=== PATIENT | female | born 1980 ===

== ENCOUNTER 2019-05-19 00:45 | Inpatient (IN) ==
[2019-05-19] MEDS ORDERED: SODIUM CHLORIDE 0.9% 1,000 ML IV SCH (03:30)
[2019-05-19 06:31] LABS: Basophils % 0.2 % (0.0-0.8); Eosinophils # 0.2 10*3/uL (0.0-0.87); Eosinophils % 2.2 % (0.00-10.9); Hematocrit 35.6 VOL% (35.7-47.0); Hemoglobin 11.9 GM/DL (12.0-16.0); Immature Granulocytes % 0.2 %; Immature Granulocytes Absolute 0.02 #; Lymphocytes # 1.8 10*3/uL (1.4-4.0); Lymphocytes % 21.4 % (21.3-54.2); Mean Corpuscular HGB Conc 33.4 GM/DL (32-36); Mean Corpuscular Volume 92.5 FL (87-102); Mean Platelet Volume 10.1 FL (9.6-12.0); Monocytes % 7.4 % (1.7-12.7); Neutrophils % 68.6 % (38.7-73.9); Platelet Count 215 T/CUMM (130-400); Red Blood Count 3.85 MC/CUMM (3.8-5.5); Red Cell Distribution Width 12.8 % (9.3-17.3); White Blood Count 8.2 T/CUMM (4-12)
[2019-05-19 06:51] LABS: Osmolality,Calculated 282.1 MOS/KG (273-304); Total Protein 5.9 G/DL (6.4-8.3)
[2019-05-19] MEDS: ENOXAPARIN 40 MG/0.4 ML SYRINGE SUBCUT SCH (09:21)
[2019-05-19] MEDS: DEXT 5% NACL 0.9% KCL 20 MEQ 20 MEQ/1,000 ML BAG IV SCH (09:21)
[2019-05-19] MEDS: PIPERACILLIN/TAZOBACTAM 3,375 MG in SODIUM CHLORIDE 0.9% 100 ML IV SCH ×2 (09:21→16:22)
[2019-05-20] MEDS: PIPERACILLIN/TAZOBACTAM 3,375 MG in SODIUM CHLORIDE 0.9% 100 ML IV SCH ×3 (00:02→18:19)
[2019-05-20] MEDS ORDERED: ACETAMINOPHEN 325 MG TABLET PO PRN (03:16)
[2019-05-20 04:32] LABS: Basophils % 0.4 % (0.0-0.8); Eosinophils # 0.2 10*3/uL (0.0-0.87); Hematocrit 34.4 VOL% (35.7-47.0); Hemoglobin 11.5 GM/DL (12.0-16.0); Immature Granulocytes % 0.3 %; Immature Granulocytes Absolute 0.02 #; Lymphocytes # 2.9 10*3/uL (1.4-4.0); Lymphocytes % 39.1 % (21.3-54.2); Mean Corpuscular HGB Conc 33.4 GM/DL (32-36); Mean Corpuscular Volume 92.5 FL (87-102); Mean Platelet Volume 10.7 FL (9.6-12.0); Monocytes % 5.7 % (1.7-12.7); Neutrophils % 51.5 % (38.7-73.9); Platelet Count 228 T/CUMM (130-400); Red Blood Count 3.72 MC/CUMM (3.8-5.5); Red Cell Distribution Width 12.8 % (9.3-17.3); White Blood Count 7.4 T/CUMM (4-12)
[2019-05-20 04:52] LABS: Albumin 2.9 G/DL (3.4-5.0); Bilirubin,Total 0.8 MG/DL (0.2-1.0); Calcium 8.2 MG/DL (8.5-10.1); Osmolality,Calculated 280.1 MOS/KG (273-304); Total Protein 5.7 G/DL (6.4-8.3)
[2019-05-20] MEDS: DEXT 5% NACL 0.9% KCL 20 MEQ 20 MEQ/1,000 ML BAG IV SCH ×3 (05:35→15:07)
[2019-05-20] MEDS ORDERED: INDOCYANINE GREEN 25 MG VIAL IV ONE (06:37)
[2019-05-20] MEDS ORDERED: cefOXitin 2,000 MG in SYRINGE 1 EACH IV ONE (06:37)
[2019-05-20] MEDS ORDERED: TISSUE ADHESIVE 1 EACH APPLICATOR TOP ONE (07:48)
[2019-05-20] MEDS ORDERED: BUPIVACAINE MPF 0.25% 30 ML VIAL ONE (07:49)
[2019-05-20] MEDS ORDERED: LIDOCAINE 1%/EPI INJ 20 ML VIAL ONE (07:49)
[2019-05-20] MEDS ORDERED: GLYCOPYRROLATE 0.4 MG/2 ML VIAL ONE (09:41)
[2019-05-20] MEDS ORDERED: SEVOFLURANE 1 UNIT/15 MINUTE INH ONE (09:41)
[2019-05-20] MEDS ORDERED: PROPOFOL 200 MG/20 ML VIAL IV ONE (09:41)
[2019-05-20] MEDS ORDERED: fentaNYL 100 MCG/2 ML VIAL ONE (09:41)
[2019-05-20] MEDS ORDERED: MIDAZOLAM 2 MG/2 ML VIAL ONE (09:41)
[2019-05-20] MEDS ORDERED: LIDOCAINE 2% 5 ML VIAL ONE (09:41)
[2019-05-20] MEDS ORDERED: ONDANSETRON 4 MG/2 ML VIAL ONE (09:41)
[2019-05-20] MEDS ORDERED: PHENYLEPHRINE 1 MG/10 ML SYRINGE IV ONE (09:42)
[2019-05-20] MEDS ORDERED: NEOSTIGMINE 10 MG/10 ML VIAL ONE (09:42)
[2019-05-20] MEDS ORDERED: ROCURONIUM 100 MG/10 ML VIAL IV ONE (09:42)
[2019-05-20] MEDS ORDERED: ONDANSETRON 4 MG/2 ML VIAL IV PRN (09:50)
[2019-05-20] MEDS ORDERED: HYDROmorphone 2 MG/1 ML VIAL IV PRN (09:50)
[2019-05-20] MEDS: ENOXAPARIN 40 MG/0.4 ML SYRINGE SUBCUT SCH (09:52)
[2019-05-20] MEDS ORDERED: HYDROmorphone 2 MG/1 ML VIAL ONE (09:52)
[2019-05-20] MEDS: MORPHINE 4 MG/1 ML VIAL IV PRN ×2 (15:30→21:36)
[2019-05-21] MEDS: MORPHINE 4 MG/1 ML VIAL IV PRN ×4 (03:08→16:56)
[2019-05-21] MEDS: PIPERACILLIN/TAZOBACTAM 3,375 MG in SODIUM CHLORIDE 0.9% 100 ML IV SCH ×3 (03:09→19:35)
[2019-05-21 04:34] LABS: Basophils % 0.4 % (0.0-0.8); Eosinophils # 0.2 10*3/uL (0.0-0.87); Eosinophils % 1.4 % (0.00-10.9); Hematocrit 34.6 VOL% (35.7-47.0); Hemoglobin 11.3 GM/DL (12.0-16.0); Immature Granulocytes % 0.4 %; Immature Granulocytes Absolute 0.04 #; Lymphocytes # 2.6 10*3/uL (1.4-4.0); Lymphocytes % 23.9 % (21.3-54.2); Mean Corpuscular HGB Conc 32.7 GM/DL (32-36); Mean Platelet Volume 10.3 FL (9.6-12.0); Monocytes % 5.7 % (1.7-12.7); Neutrophils % 68.2 % (38.7-73.9); Platelet Count 227 T/CUMM (130-400); Red Blood Count 3.72 MC/CUMM (3.8-5.5); Red Cell Distribution Width 12.7 % (9.3-17.3); White Blood Count 10.9 T/CUMM (4-12)
[2019-05-21 04:45] LABS: PT Patient Result 10.8 SECS (9.6-12.2)
[2019-05-21 05:42] LABS: Alanine Aminotransferase 84 U/L (13-56); Albumin 2.8 G/DL (3.4-5.0); Alkaline Phosphatase 91 U/L (45-117); Aspartate Amino Transferase 24 U/L (0-37); Bilirubin,Total < 0.39 MG/DL (0.2-1.0); Blood Urea Nitrogen 6 MG/DL (7-18); Calcium 7.8 MG/DL (8.5-10.1); Estimated Glom Filtration Rate 126 ML/MIN; Glucose 136 MG/DL (74-106); Osmolality,Calculated 280.3 MOS/KG (273-304); Total Protein 5.7 G/DL (6.4-8.3)
[2019-05-21] MEDS ORDERED: LACTATED RINGERS 1,000 ML IV SCH (08:00)
[2019-05-21] MEDS ORDERED: INDOMETHACIN SUPP 50 MG SUPP RECTAL ONE (08:00)
[2019-05-21] MEDS: ENOXAPARIN 40 MG/0.4 ML SYRINGE SUBCUT SCH (08:30)
[2019-05-21] MEDS ORDERED: fentaNYL 100 MCG/2 ML VIAL ONE (10:40)
[2019-05-21] MEDS ORDERED: MIDAZOLAM 2 MG/2 ML VIAL ONE (10:41)
[2019-05-21] MEDS: DEXT 5% NACL 0.9% KCL 20 MEQ 20 MEQ/1,000 ML BAG IV SCH ×2 (11:43)
[2019-05-21] MEDS: ONDANSETRON 4 MG/2 ML VIAL IV PRN (12:38)
[2019-05-21] MEDS ORDERED: POLYETHYLENE GLYCOL POWDER 17 GM PACK PO PRN (19:50)
[2019-05-22] MEDS: PIPERACILLIN/TAZOBACTAM 3,375 MG in SODIUM CHLORIDE 0.9% 100 ML IV SCH ×3 (03:48→22:13)
[2019-05-22 04:44] LABS: Basophils % 0.4 % (0.0-0.8); Eosinophils # 0.2 10*3/uL (0.0-0.87); Eosinophils % 2.3 % (0.00-10.9); Hematocrit 30.6 VOL% (35.7-47.0); Hemoglobin 10.1 GM/DL (12.0-16.0); Immature Granulocytes % 0.3 %; Immature Granulocytes Absolute 0.02 #; Lymphocytes % 39.6 % (21.3-54.2); Mean Corpuscular Volume 93.6 FL (87-102); Mean Platelet Volume 10.7 FL (9.6-12.0); Monocytes % 6.8 % (1.7-12.7); Neutrophils % 50.6 % (38.7-73.9); Platelet Count 195 T/CUMM (130-400); Red Blood Count 3.27 MC/CUMM (3.8-5.5); Red Cell Distribution Width 12.9 % (9.3-17.3); White Blood Count 7.7 T/CUMM (4-12)
[2019-05-22 05:12] LABS: Albumin 2.7 G/DL (3.4-5.0); Bilirubin,Total 0.4 MG/DL (0.2-1.0); Calcium 8.2 MG/DL (8.5-10.1); Osmolality,Calculated 285.7 MOS/KG (273-304); Total Protein 5.4 G/DL (6.4-8.3)
[2019-05-22] MEDS ORDERED: INDOMETHACIN SUPP 50 MG SUPP RECTAL ONE ×2 (08:00→10:18)
[2019-05-22] MEDS ORDERED: fentaNYL 100 MCG/2 ML VIAL ONE (08:46)
[2019-05-22] MEDS: MORPHINE 4 MG/1 ML VIAL IV PRN (08:47)
[2019-05-22] MEDS ORDERED: MIDAZOLAM 2 MG/2 ML VIAL ONE (08:47)
[2019-05-22] MEDS: DEXT 5% NACL 0.9% KCL 20 MEQ 20 MEQ/1,000 ML BAG IV SCH ×4 (09:02→22:06)
[2019-05-22] MEDS ORDERED: PROPOFOL 200 MG/20 ML VIAL IV ONE (10:00)
[2019-05-22] MEDS ORDERED: LIDOCAINE 2% 5 ML VIAL ONE (10:00)
[2019-05-22] MEDS ORDERED: LIDOCAINE 100 MG/5 ML SYRINGE ONE (10:00)
[2019-05-22] MEDS ORDERED: NEOSTIGMINE 10 MG/10 ML VIAL ONE (10:00)
[2019-05-22] MEDS ORDERED: GLYCOPYRROLATE 0.4 MG/2 ML VIAL ONE (10:00)
[2019-05-22] MEDS ORDERED: DEXAMETHASONE 4 MG/1 ML VIAL ONE (10:00)
[2019-05-22] MEDS ORDERED: ROCURONIUM 100 MG/10 ML VIAL IV ONE (10:00)
[2019-05-22] MEDS ORDERED: ONDANSETRON 4 MG/2 ML VIAL ONE (10:00)
[2019-05-22] MEDS: LACTATED RINGERS 1,000 ML IV SCH (10:07)
[2019-05-22] MEDS ORDERED: INDOMETHACIN SUPP 50 MG SUPP RECTAL STA (11:43)
[2019-05-22] MEDS ORDERED: SEVOFLURANE 1 UNIT/15 MINUTE INH ONE (12:52)
[2019-05-22] MEDS: ONDANSETRON 4 MG/2 ML VIAL IV PRN (18:09)
[2019-05-23 04:42] LABS: Basophils % 0.2 % (0.0-0.8); Eosinophils % 0.1 % (0.00-10.9); Hematocrit 33.2 VOL% (35.7-47.0); Hemoglobin 11.1 GM/DL (12.0-16.0); Immature Granulocytes % 0.3 %; Immature Granulocytes Absolute 0.03 #; Lymphocytes # 1.7 10*3/uL (1.4-4.0); Lymphocytes % 17.1 % (21.3-54.2); Mean Corpuscular HGB Conc 33.4 GM/DL (32-36); Mean Corpuscular Volume 91.5 FL (87-102); Mean Platelet Volume 10.5 FL (9.6-12.0); Monocytes % 6.1 % (1.7-12.7); Neutrophils % 76.2 % (38.7-73.9); Platelet Count 249 T/CUMM (130-400); Red Blood Count 3.63 MC/CUMM (3.8-5.5); Red Cell Distribution Width 12.4 % (9.3-17.3); White Blood Count 9.7 T/CUMM (4-12)
[2019-05-23 05:17] LABS: Bilirubin,Total 0.7 MG/DL (0.2-1.0); Calcium 8.7 MG/DL (8.5-10.1); Osmolality,Calculated 277.4 MOS/KG (273-304); Total Protein 6.3 G/DL (6.4-8.3)
[2019-05-23] MEDS: PIPERACILLIN/TAZOBACTAM 3,375 MG in SODIUM CHLORIDE 0.9% 100 ML IV SCH (06:03)
[2019-05-23] MEDS: DEXT 5% NACL 0.9% KCL 20 MEQ 20 MEQ/1,000 ML BAG IV SCH ×2 (07:14→12:33)
[2019-05-23] MEDS: LACTATED RINGERS 1,000 ML IV SCH (09:13)
[2019-05-23] MEDS ORDERED: ONDANSETRON 4 MG TABLET PO PRN (11:06)
[2019-05-23] MEDS ORDERED: INFLUENZA VIRUS VACCINE 0.5 ML SYRINGE IM ONE (11:23)
[2019-05-23 11:30] VITALS: BP 129/71
== END 2019-05-23 12:47 | disposition home or self-care (01) | DRG 418 ==
LOC: N.3E 02:42 → SUATTDRO 02:42
PROVIDERS: ADMIT Internal Medicine; ATTEND Hospitalist
PROC: ERCPWSP (ICD-10-PCS; 2019-05-22 09:35)